=== PATIENT | female | born 1985 | race Caucasian/White ===

== ENCOUNTER 2018-05-23 09:25 | Emergency (ER) | payer BC ==
--- OUTSIDE RECORDS SUMMARY | 2018-05-23 09:39 | XMS REPORT | Continuity of Care Document ---
:1985 External Reference #:[id number] Author Name Ahsan Murillo D.O. Address [address] [place] [address] Care Team Providers Name Role Phone HCP given Primary Care Physician Unavailable Payers Type Date Identification Numbers Payment Provider Subscriber Effective: Policy Number: [id number] Frederick Pizano 2018 Ind/Ppo/Hmo/Pos PayID: [id number] [address] [address] [place] [address] Advance Directives Description No Information Available Problems Date Description Provider Status Onset: 11/27/2004 Verruca vulgaris Braulio Urena M.D. Active Onset: 03/02/2013 Dizziness and giddiness Ahsan Murillo D.O. Active Onset: 06/26/2015 Anxiety state Ahsan Murillo D.O. Active Onset: 06/26/2015 Insomnia Ahsan Murillo D.O. Active Family History Date Family Member(s) Problem(s) Comments Father insomnia Father Hypercholesterolemia Father Pancreatic Cancer Father Florentino Father 1954 Mother Emotional Problems Mother General Health Good Mother Jose Mother 1957 First Brother General Health Good First Brother Antolin First Brother 1986 Second Brother General Health Good Second Brother Doron Second Brother 1993 Third Brother General Health Good Third Brother Eric Third Brother 1996 Social History Type Date Description Comments Sex Unknown Education Highest Level Completed College Marital Status Single Smoke-Free Home is smoke-free Work Status 2012 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, customer service, support Tobacco Use Start: Unknown Denies Cigarette Use No smoking since 20 or 21 ETOH Use Occasionally consumes 2 to 3 drinks over alcohol the w/e (social) Recreational Drug Use Has Used Illegal Drugs In The Past Tobacco Use Start: Unknown Patient has never smoked Smoking Status Reviewed: 10/16/16 Patient has never smoked Sun Exposure moderate amount of sun exposure Sun Exposure Uses sunscreen Seat Belt/Car Seat always uses seat belt Currently Active Patient is currently not sexually active Contraceptive Methods None Age 1st [place] 14 Years Old # Partners in a Lifetime 5 STD's HPV but has not had chlamydia, genital herpes, genital warts, gonorrhea, Hepatitis B, Hepatitis C, HIV/Aids, PID, syphillis or trichomoniasis. Additional Info Sexual preference is men Allergies, Adverse Reactions, Alerts Date Description Reaction Status Severity Comments 12/31/2011 Penicillin Active 08/26/2003 PNC Inactive Medications Medication Date Status Form Strength Qnty SIG Indications Ordering Provider Probiotic 05/09 Active Capsules 1 by mouth Unknown twice daily Magnesium 05/09 Active Tablets 500mg 1 by mouth daily Temazepam 10/11 Active Capsules 7.5mg 30cap 1 every G47.00 s night at Ahsan, bedtime, as D.O. needed for sleep Escitalopram 10/07 Active Tablets 10mg 30tab Take One F41.9 , s Tablet By Ahsan, Mouth Every D.O. Evening Gabapentin 08/02 Active Capsules 300mg 90cap Take 1 To 3 G47.00 s Caps By Ahsan, Mouth as D.O. Needed Clarithromycin 02/21 Hx Tablets 500mg 20tab 1 by mouth 466.0 s twice a day Ahsan, - D.O. 03/03 Magox 400 10/16 Hx Tablets 400(241.3 360ta 1-4 tablets G47.00 mg) mg bs every night Ahsan, - at bedtime D.O. 02/20 as Azithromycin 08/28 Hx Tablets 250mg 6tabs 2 tabs by J01.90 Leanne mouth daily SANDRA Marti - x1 day then 10/15 1 tab by mouth daily x4 days Ventolin HFA 04/17 Hx Aerosol 108(90Bas 16gm inhale 2 R05 [facility] e) puffs by Ahsan, - mcg/Act mouth every D.O. 05/17 4 hours as needed for bronchospasm Multivitamin 04/16 Hx Tablets 1 by mouth Unknown Adult every day - 10/09 Bactrim DS 09/14 Hx Tablets 800-160mg 20tab 1 tab twice 461.0 Silcoff, s daily for 10 Nawaf, - days M.D. 09/24 Clarithromycin 03/03 Hx Tablets 500mg 20tab 1 by mouth 466.0 Sopchak, s twice a day Ahsan, - D.O. 07/03 Flonase 03/03 Hx Suspension 50mcg/Act 1unit inhale 2 461.0 S[place]chak s sprays into Ahsan, - nostril D.O. 07/03 daily in each nostril for nose inflammation Clindagel 12/10 Hx Gel 1% 60g thin layer 705.83 of gel bid Nawaf, - to affected M.D. 02/16 Alprazolam 10/07 Hx Tablets 1mg 60tab 1/2 to 1 780.52 Silcoff, s tabs up to Nawaf, - 3/day M.D. 01/12 Lunesta 10/07 Hx Tablets 1mg 60tab 1 (or 2) 780.52 Silcoff s tabs at Nawaf, - bedtime M.D. 11/10 Temazepam 07/13 Hx Capsules 7.5mg 30cap 1 qhs, prn 780.52 Silcoff, s for sleep Nawaf, - M.D. 10/07 Clarithromycin 09/22 Hx Tablets 500mg 20tab 1 po bid for 461.1 Silcoff, s 10 days; Nawaf, - start if M.D. 10/06 symptoms better by the weekend Zolpidem 07/24 Hx Tablets 5mg 30tab 1-2 tabs 780.52 Silcoff, Tar s qhs,prn Nawaf, - M.D. 07/30 Bactrim DS 07/24 Hx Tablets 160mg;800 14tab 1 po bid 461.0 Silcoff, mg s take until Nawaf, - finished M.D. 09/15 Sulfamethoxazol 04/01 Hx Tablets 800-160mg 20tab 1 po bid 461.0 Braulio greene s A. DS - Gayla, 04/11 M.D. Clindamycin HCL 09/20 Hx Capsules 300mg 20cap 1 tab po 461.0 Silco s b.i.d x 10d Angelito Mccracken M.D. 09/30 Ambien CR 08/01 Hx Tablets ER 12.5mg 30tab one tablet 780.52 [place], s po qhs prn Angelito Mccracken M.D. 07/24 Trazodone HCL 07/24 Hx Tablets 50mg 30tab 1 po qhs 780.52 Silcoff, s Angelito Mccracken M.D. 08/01 Alprazolam 07/03 Hx Tablets 0.5mg 30tab 07/15-1 po tid 300.02 Silco s prn for Angelito Mccracken anxiety M.DLibertad 09/30 Buspirone HCL 07/03 Hx Tablets 5mg 65tab 1 po qd x 7 300.02 [place]copreet, s days, then Nawaf, - bid x 7 M.D. 07/24 days, tid Bactrim DS 03/13 Hx Tablets 160mg;800 20tab 1 po bid 595.0 mg s take until A. - finished Gayla, 03/13 M.D. Bactrim DS 03/13 Hx Tablets 160mg;800 1 po bid 595.0 mg take until A. - finished Gayla, 03/23 M.D. Doxycycline 08/28 Hx Injection 100mg 20uni take 1 , ts tablet two Melany, - times a day N.P. 11/27 after meals for 10 days [id number] 05/26 Hx Tablets 3tabs start on Breiman, n first friday Melany, - of menses N.P. 08/28 Immunizations CPT Code Status Date Vaccine Lot # U-Flu Given 05/02/2017 Influenza,Unspecified U-Flu Given 04/10/2016 Influenza,Unspecified [id number] Given 10/19/2015 Adacel or Boostrix, TDaP [id number] Given 04/28/2015 Influenza Virus Vaccine, Quadrivalent, Split, Preservative Free [id number] Given 05/20/2014 Flu, Split Virus 3Yrs [id number] Given 05/26/2003 Flu, Split Virus 3Yrs Vital Signs Date Vital Result Comment 05/13/2018 3:33pm BP Systolic 112 mmHg BP Diastolic 70 mmHg Weight 131.00 lb 10/17/2017 9:30am BP Systolic 120 mmHg BP Diastolic 70 mmHg Height 66.75 inches 5'6.75" Weight 132.00 lb BMI (Body Mass Index) 20.8 kg/m2 10/10/2017 2:41pm BP Systolic 116 mmHg BP Diastolic 54 mmHg Weight 131.00 lb 02/21/2017 11:55am BP Systolic 104 mmHg BP Diastolic 68 mmHg Weight 141.00 lb 10/16/2016 2:00pm BP Systolic 110 mmHg BP Diastolic 70 mmHg Height 66.5 inches 5'6.50" Weight 145.00 lb with shoes BMI (Body Mass Index) 23.1 kg/m2 08/28/2016 1:26pm BP Systolic 110 mmHg BP Diastolic 60 mmHg Body Temperature 99.0 F Weight 151.00 lb w/boots 06/27/2016 11:13am BP Systolic 125 mmHg BP Diastolic 82 mmHg Weight 151.00 lb with boots 04/17/2016 4:44pm BP Systolic 118 mmHg BP Diastolic 60 mmHg Body Temperature 99.0 F Height 67 inches 5'7" Weight 149.00 lb BMI (Body Mass Index) 23.3 kg/m2 10/19/2015 10:57am BP Systolic 118 mmHg BP Diastolic 72 mmHg Height 66.5 inches 5'6.50" Weight 147.00 lb BMI (Body Mass Index) 23.4 kg/m2 06/26/2015 1:29pm BP Systolic 110 mmHg BP Diastolic 60 mmHg Height 67 inches 5'7" Weight 149.00 lb w/shoes BMI (Body Mass Index) 23.3 kg/m2 02/09/2015 11:30am BP Systolic 128 mmHg BP Diastolic 75 mmHg Weight 141.00 lb with sandals 09/29/2014 11:06am BP Systolic 100 mmHg BP Diastolic 60 mmHg Body Temperature 98.0 F Weight 140.00 lb w/boots 09/14/2014 1:45pm BP Systolic 120 mmHg BP Diastolic 62 mmHg Body Temperature 98.2 F Weight 141.00 lb shoes on 08/26/2014 2:07pm BP Systolic 110 mmHg BP Diastolic 70 mmHg Height 67.25 inches 5'7.25" Weight 137.00 lb BMI (Body Mass Index) 21.3 kg/m2 Last Menstrual Period [id number] 07/04/2014 1:53pm BP Systolic 116 mmHg BP Diastolic 66 mmHg Body Temperature 98.4 F Height 67.5 inches 5'7.50" shoes on Weight 137.50 lb shoes on BMI (Body Mass Index) 21.2 kg/m2 03/03/2014 11:10am BP Systolic 120 mmHg BP Diastolic 82 mmHg Body Temperature 98.2 F Weight 135.00 lb 02/10/2014 8:47am BP Systolic 119 mmHg BP Diastolic 67 mmHg Heart Rate 90 /min Weight 135.00 lb boots 12/10/2013 11:55am BP Systolic 120 mmHg BP Diastolic 74 mmHg Heart Rate 85 /min Body Temperature 98.5 F Weight 130.00 lb 11/10/2013 8:47am BP Systolic 127 mmHg BP Diastolic 71 mmHg Heart Rate 88 /min Weight 133.00 lb 10/07/2013 9:17am BP Systolic 131 mmHg BP Diastolic 69 mmHg Heart Rate 93 /min Weight 131.00 lb 09/20/2013 3:40pm BP Systolic 152 mmHg BP Diastolic 80 mmHg Weight 134.00 lb 09/17/2013 11:26am BP Systolic 130 mmHg BP Diastolic 79 mmHg Heart Rate 103 /min Body Temperature 98.3 F Height 66.50 inches 5'6.50" Weight 133.00 lb BMI (Body Mass Index) 21.1 kg/m2 08/02/2013 9:16am BP Systolic 128 mmHg BP Diastolic 72 mmHg Heart Rate 113 /min 100 Weight 135.00 lb shoes on 07/13/2013 11:07am BP Systolic 108 mmHg BP Diastolic 72 mmHg BP Systolic Standing Resting Right Arm 127 mmHg pulse 101 BP Diastolic Standing Resting Right Arm 83 mmHg pulse 101 Heart Rate 103 /min Weight 132.50 lb Shoes on BP Systolic Lying Down Resting Right Arm 127 mmHg pulse 73 BP Diastolic Lying Down Resting Right Arm 90 mmHg pulse 73 BP Systolic Sitting Resting Right Arm 115 mmHg pulse 98 BP Diastolic Sitting Resting Right Arm 81 mmHg pulse 98 07/09/2013 4:28pm BP Systolic 120 mmHg BP Diastolic 70 mmHg Body Temperature 99.1 F Weight 131.00 lb 03/02/2013 1:23pm BP Systolic 122 mmHg BP Diastolic 80 mmHg Body Temperature 99.0 F Height 66 inches 5'6" Weight 130.00 lb BMI (Body Mass Index) 21.0 kg/m2 09/22/2012 10:15am BP Systolic 120 mmHg BP Diastolic 70 mmHg Body Temperature 98.6 F Weight 134.00 lb 09/02/2012 2:26pm BP Systolic 120 mmHg BP Diastolic 64 mmHg Heart Rate 77 /min Height 66 inches 5'6" Weight 130.00 lb BMI (Body Mass Index) 21.0 kg/m2 07/24/2012 9:53am BP Systolic 118 mmHg BP Diastolic 67 mmHg Heart Rate 93 /min Body Temperature 98.5 F Height 66.50 inches 5'6.50" Weight 129.00 lb BMI (Body Mass Index) 20.5 kg/m2 Last Menstrual Period 0 04/01/2012 1:36pm BP Systolic 110 mmHg BP Diastolic 64 mmHg Body Temperature 98.2 F Weight 129.00 lb Last Menstrual Period 0 03/12/2012 9:55am BP Systolic 104 mmHg BP Diastolic 60 mmHg Heart Rate 68 /min Weight 128.00 lb 12/31/2011 4:55pm BP Systolic 120 mmHg BP Diastolic 64 mmHg Respiratory Rate 12 /min not laboured Body Temperature 97.9 F Weight 127.00 lb 10/02/2011 2:35pm BP Systolic 115 mmHg BP Diastolic 50 mmHg Heart Rate 77 /min Body Temperature 98.5 F Height 66.5 inches 5'6.50" Weight 120.00 lb BMI (Body Mass Index) 19.1 kg/m2 09/21/2011 9:51am BP Systolic 106 mmHg BP Diastolic 58 mmHg Heart Rate 92 /min Body Temperature 98.3 F 09/09/2011 11:38am BP Systolic 128 mmHg BP Diastolic 69 mmHg Heart Rate 103 /min Body Temperature 98.4 F Weight 118.00 lb 07/24/2011 3:18pm BP Systolic 118 mmHg BP Diastolic 72 mmHg Heart Rate 95 /min Weight 118.00 lb Last Menstrual Period 0 07/03/2011 11:43am BP Systolic 132 mmHg BP Diastolic 62 mmHg Heart Rate 85 /min Weight 116.00 lb Last Menstrual Period 0 04/04/2011 1:49pm BP Systolic 122 mmHg BP Diastolic 80 mmHg Heart Rate 78 /min Height 66.5 inches 5'6.50" Weight 120.00 lb BMI (Body Mass Index) 19.1 kg/m2 Last Menstrual Period [id number] 06/20/2010 2:24pm BP Systolic 136 mmHg BP Diastolic 65 mmHg Heart Rate 78 /min Height 67.5 inches 5'7.50" Weight 130.00 lb BMI (Body Mass Index) 20.1 kg/m2 03/27/2006 10:57am BP Systolic 122 mmHg BP Diastolic 60 mmHg Body Temperature 98.2 F Height 66.50 inches 5'6.50" Weight 133.00 lb BMI (Body Mass Index) 21.1 kg/m2 Last Menstrual Period [id number] 10/23/2005 2:32pm BP Systolic 120 mmHg BP Diastolic 72 mmHg Body Temperature 97.7 F Weight 130.00 lb 03/13/2005 4:14pm BP Systolic 128 mmHg BP Diastolic 66 mmHg Heart Rate 80 /min Body Temperature 98.3 F Weight 129.00 lb 11/27/2004 2:06pm BP Systolic 118 mmHg BP Diastolic 68 mmHg Heart Rate 80 /min rrr Respiratory Rate 16 /min easy Body Temperature 98.6 F Weight 130.00 lb Last Menstrual Period [id number] normal 09/19/2004 11:40am BP Systolic 122 mmHg BP Diastolic 72 mmHg Height 67 inches 5'7" Weight 134.00 lb BMI (Body Mass Index) 21.0 kg/m2 08/28/2004 9:43am BP Systolic 126 mmHg BP Diastolic 70 mmHg Height 67 inches 5'7" Weight 132.00 lb BMI (Body Mass Index) 20.7 kg/m2 Last Menstrual Period [id number] 06/20/2004 1:40pm BP Systolic 112 mmHg BP Diastolic 64 mmHg Body Temperature 98.6 F PO Height 67 inches 5'7" Weight 131.00 lb BMI (Body Mass Index) 20.5 kg/m2 09/20/2003 4:50pm Weight 139.00 lb Last Menstrual Period [id number] 09/07/2003 2:55pm Weight 135.00 lb WT Of 08/23/03 09/07/2003 2:53pm Body Temperature 98.2 F 08/23/2003 8:57am BP Systolic 118 mmHg BP Diastolic 70 mmHg Weight 135.00 lb Last Menstrual Period 0 05/26/2003 3:38pm Weight 133.00 lb Results Test Date Facility Test Result H/L Range Note CBC Auto Diff 05/16/2018 [facility] White Blood 5.1 10^3/uL N 3.5- 10.8 [phone] Count Red Blood Count 4.75 10^6/uL N 4.00-5.40 Hemoglobin 15.0 g/dL N 12.0-16.0 Hematocrit 44 % N 35-47 Mean Corpuscular Volume 92 fL N 80-97 Mean Corpuscular Hemoglobin 32 pg High 27-31 Mean Corpuscular HGB Conc 34 g/dL N 31-36 Red Cell Distribution Width 12 % N 10.5-15 Platelet Count 237 10^3/uL N 150-450 Mean Platelet Volume 8.2 fL N 7.4-10.4 Abs Neutrophils 2.5 10^3/uL N 1.5-7.7 Abs Lymphocytes 2.1 10^3/uL N 1.0-4.8 Abs Monocytes 0.5 10^3/uL N 0-0.8 Abs Eosinophils 0 10^3/uL N 0-0.6 Abs Basophils 0 10^3/uL N 0-0.2 Abs Nucleated RBC 0 10^3/uL Granulocyte % 48.2 % N 38-83 Lymphocyte % 41.3 % N 25-47 Monocyte % 9.2 % High 0-7 Eosinophil % 0.9 % N 0-6 Basophil % 0.4 % N 0-2 Nucleated Red Blood Cells % 0 Comp Metabolic Panel 05/16/2018 [facility] Sodium 138 mmol/L N 135- 145 [phone] Potassium 4.8 mmol/L N 3.5-5.0 Chloride 106 mmol/L N 101-111 Co2 Carbon Dioxide 25 mmol/L N 22-32 Anion Gap 7 mmol/L N 2-11 Glucose 85 mg/dL N 70-100 Blood Urea Nitrogen 14 mg/dL N 6-24 Creatinine 0.99 mg/dL High 0.51-0.95 BUN/Creatinine Ratio 14.1 N 8-20 Calcium 9.6 mg/dL N 8.6-10.3 Total Protein 7.3 g/dL N 6.4-8.9 Albumin 4.8 g/dL N 3.2-5.2 Globulin 2.5 g/dL N 2-4 Albumin/Globulin Ratio 1.9 N 1-3 Total Bilirubin 0.80 mg/dL N 0.2-1.0 Alkaline Phosphatase 47 U/L N 34-104 Alt 9 U/L N 7-52 Ast 13 U/L N 13-39 Egfr Non- 64.2 >60 Egfr 77.7 >60 1 Laboratory test 05/16/2018 [facility] TSH (Thyroid 0.90 mcIU/mL N 0.34-5.60 finding [phone] Stim Horm) Magnesium 2.1 mg/dL N 1.9-2.7 Vitamin D Total 25(Oh) 31.9 ng/mL N 20-50 Vitamin B12 368 pg/mL N 180-914 2 Amylase 78 U/L N 29-103 Lipase 27 U/L N 11.0-82.0 Laboratory test 05/16/2018 [facility] Erythrocyte Sed Rate 7 mm/Hr N 0-14 finding [phone] Reactive Protein < 1.00 mg/L N <8.01 Lipid Profile (Trig/Chol/HDL) 02/08/2016 [facility] Triglycerides 108 mg/dL N 3 [phone] Cholesterol 153 mg/dL N 4 HDL Cholesterol 44.4 mg/dL N 5 LDL Cholesterol 87 mg/dL N 6 CBC Auto Diff 02/08/2016 [facility] White Blood Count 6.5 10^3/uL N 3.5-10.8 [phone] Red Blood Count 4.56 10^6/uL N 4.0-5.4 Hemoglobin 14.1 g/dL N 12.0-16.0 Hematocrit 42 % N 35-47 Mean Corpuscular Volume 91 fL N 80-97 Mean Corpuscular Hemoglobin 31 pg N 27-31 Mean Corpuscular HGB Conc 34 g/dL N 31-36 Red Cell Distribution Width 12 % N 10.5-15 Platelet Count 252 10^3/uL N 150-450 Mean Platelet Volume 8 um3 N 7.4-10.4 Abs Neutrophils 3.6 10^3/uL N 1.5-7.7 Abs Lymphocytes 2.3 10^3/uL N 1.0-4.8 Abs Monocytes 0.5 10^3/uL N 0-0.8 Abs Eosinophils 0.1 10^3/uL N 0-0.6 Abs Basophils 0 10^3/uL N 0-0.2 Abs Nucleated RBC 0.01 10^3/uL N Granulocyte % 55.1 % N 38-83 Lymphocyte % 34.7 % N 25-47 Monocyte % 8.3 % N 1-9 Eosinophil % 1.6 % N 0-6 Basophil % 0.3 % N 0-2 Nucleated Red Blood Cells % 0.1 N Comp Metabolic Panel 02/08/2016 [facility] Sodium 139 mmol/L N 133- 145 [phone] Potassium 4.1 mmol/L N 3.5-5.0 Chloride 104 mmol/L N 101-111 Co2 Carbon Dioxide 28 mmol/L N 22-32 Anion Gap 7 mmol/L N 2-11 Glucose 82 mg/dL N 70-100 Blood Urea Nitrogen 12 mg/dL N 6-24 Creatinine 1.01 mg/dL High 0.51-0.95 BUN/Creatinine Ratio 11.9 N 8-20 Calcium 9.4 mg/dL N 8.6-10.3 Total Protein 7.3 g/dL N 6.4-8.9 Albumin 4.5 g/dL N 3.2-5.2 Globulin 2.8 g/dL N 2-4 Albumin/Globulin Ratio 1.6 N 1-3 Total Bilirubin 0.50 mg/dL N 0.2-1.0 Alkaline Phosphatase 50 U/L N 34-104 Alt 9 U/L N 7-52 Ast 16 U/L N 13-39 Egfr Non- 63.9 N >60 Egfr 82.2 N >60 7 Laboratory test 02/08/2016 [facility] TSH (Thyroid 1.81 mcIU/mL N 0.34-5.60 8 finding [phone] Stim Horm) Magnesium 2.0 mg/dL N 1.9-2.7 9 Vitamin D Total 25(Oh) 30.6 ng/mL N 30-50 10 Vitamin B12 320 pg/mL N 180-914 11 Laboratory test finding 09/29/2014 In House Culture Throat Rapid negative Screen Culture Throat negative Laboratory test finding 07/04/2014 In House Culture Throat Rapid negative Screen Culture Throat negative Order 07/04/2014 [facility] rapid strep neg screen, inhouse Laboratory test 10/12/2013 [facility] Stool Culture (SEE NOTE) 12 finding [phone] O P: Giardia/Cryptospor Screen (SEE NOTE) 13 Laboratory test 09/17/2013 [facility] TSH (Thyroid 0.82 IU/mL 0.34- 5.60 finding [phone] Stimulating Horm) Free T3 2.90 pg/mL 2.5-3.9 Total T3 1.19 ng/mL 0.87-1.78 Free T4 1.02 ng/mL 0.61-1.12 T4 8.26 g/dL 6.09-12.23 Laboratory test 09/17/2013 [facility] Thyroglobulin <20 IU/mL <116 14 finding [phone] Antibody Thyroid Peroxidase Antibodies 0.23 IU/mL <9 Laboratory test finding 07/13/2013 In House Glucose Quantitative 89 Laboratory test finding 07/09/2013 In House Glucose Quantitative 101 Hemoglobin 14.5 Comp Metabolic Panel 03/03/2013 [facility] Sodium 135 mmol/L 133- 145 [phone] Potassium 4.0 mmol/L 3.5-5.0 Chloride 103 mmol/L 101-111 Co2 Carbon Dioxide 26.0 mmol/L 22-32 Anion Gap 6.0 mmol/L 2-11 Glucose 90 mg/dL 70-100 Blood Urea Nitrogen 13 mg/dL 6-24 Creatinine 1.00 mg/dL 0.50-1.40 BUN/Creatinine Ratio 13.0 8-20 Calcium 9.4 mg/dL 8.1-9.9 Total Protein 7.0 g/dL 6.2-8.1 Albumin 4.6 g/dL 3.6-5.4 Globulin 2.4 g/dL 2-4 Albumin/Globulin Ratio 1.9 1-3 Total Bilirubin 1.1 mg/dL 0.4-1.5 Alkaline Phosphatase 46 U/L 30-110 Alt 13 U/L Low 14-54 Ast 17 U/L 12-42 Egfr Non- 65.6 >60 Egfr 84.3 >60 15 CBC Auto Diff 03/03/2013 [facility] White Blood Count 8.1 10^3/uL 4.8-10.8 [phone] Red Blood Count 4.50 10^6/uL 4.0-5.4 Hemoglobin 14.4 g/dL 12.0-16.0 Hematocrit 42 % 35-47 Mean Corpuscular Volume 94 fL 80-97 Mean Corpuscular Hemoglobin 32 pg High 27-31 Mean Corpuscular HGB Conc 34 g/dL 31-36 Red Cell Distribution Width 12 % 10.5-15 Platelet Count 239 10^3/uL 150-450 Mean Platelet Volume 8 um3 7.4-10.4 Abs Neutrophils 5.2 10^3/uL 1.5-7.7 Abs Lymphocytes 2.1 10^3/uL 1.0-4.8 Abs Monocytes 0.6 10^3/uL 0-0.8 Abs Eosinophils 0.1 10^3/uL 0-0.6 Abs Basophils 0 10^3/uL 0-0.2 Abs Nucleated RBC 0 10^3/uL Granulocyte % 64.8 % 38-83 Lymphocyte % 25.5 % 25-47 Monocyte % 7.9 % 1-9 Eosinophil % 1.6 % 0-6 Basophil % 0.2 % 0-2 Nucleated Red Blood Cells % 0 Laboratory test finding 03/03/2013 [facility] Magnesium 2.3 mg/dL 1.7-2.6 16 [phone] Phosphorus 3.2 mg/dL 2.4-4.7 17 Folate > 25.6 ng/mL High 2-16 18 Vitamin B12 431 pg/mL 180-914 19 TSH (Thyroid Stimulating Horm) 1.91 miu/mL 0.34-5.60 20 Lipid Profile 03/03/2013 [facility] Triglycerides 98 mg/dL 40-200 (Trig/Chol/HDL) [phone] Cholesterol 161 mg/dL Less than 200 HDL Cholesterol 53 mg/dL 40-60 21 Cholesterol/HDL Ratio 3.0 Average 1-4.44 LDL Cholesterol 88.4 Less Than 100 22 Laboratory test 03/02/2013 In House Hemoglobin A1c 5.0 finding Laboratory test 09/02/2012 [facility] Cytology RUN DATE: 23 finding [phone] 09/04/ <SEE NOTE> Laboratory test 09/02/2012 [facility] Genital Culture (SEE NOTE) 24 finding [phone] Laboratory test 12/31/2011 In House Culture Throat neg finding Laboratory test 10/04/2011 [facility] TSH 1.22 MIU/ML 0.34-5.6 25 finding [phone] Lipid Profile 10/04/2011 [facility] Triglyceride 82 mg/dL 40-200 (Trig/Chol/HDL) [phone] Cholesterol 140 mg/dL Less Than 200 26 High Density Lipoprotein 52 mg/dL 40-60 27 Cholesterol/HDL Ratio 2.69 AVERAGE 1-4.44 Low Density Lipoprotein 72 mg/dL Less Than 100 28 Comp Metabolic Panel 10/04/2011 [facility] Sodium 138 mmol/L 135- 145 [phone] Potassium 4.0 mmol/L 3.5-5.0 Chloride 105 mmol/L 101-111 Co2 (Carbon Dioxide) 27.0 mmol/L 22-32 Anion Gap 6.0 mmol/L 2-11 29 Glucose 91 mg/dL 70-100 BUN 10 mg/dL 6-24 Creatinine 1.0 mg/dL 0.50-1.40 One Over Creatinine 1.00 BUN/Creatinine Ratio 10.0 8-20 Calcium 9.3 mg/dL 8.1-9.9 Total Protein 7.4 GM/DL 6.2-8.1 Albumin 4.4 GM/DL 3.6-5.4 Globulin 3.0 GM/DL 2-4 Albumin/Globulin Ratio 1.5 1-3 Bilirubin Total 0.9 mg/dL 0.4-1.5 30 Alkaline Phosphatase 54 U/L 30-110 Alt (SGPT) 16 U/L 14-54 Ast (Sgot) 22 U/L 12-42 eGFR Non- 66.5 > 60 eGFR 85.5 > 60 31 CBC Auto Diff 10/04/2011 [facility] White Blood Count 7.3 CUMM 4.8- 10.8 [phone] Red Cell Count 4.38 CUMM 4.2-5.4 Hemoglobin 14.2 g/dL 12.0-16.0 Hematocrit 41 % 35-47 Mean Corpuscular Volume 93 um3 79-97 Mean Corpuscular Hemoglob 32 pg High 27-31 Mean Corpuscular HGB Cone 35 g/dL 32-36 Redcell Distribution WDTH 12 % 10.5-15 Platelet Count 266 CUMM 150-450 Mean Platelet Volume 7.8 um3 7.4-10.4 Gran % 61.4 % 38-83 Lymph % 30.4 % 25-47 Mononuclear % 7.2 % 1-9 Eosinophil % 0.8 % 0-6 Basophil % 0.2 % 0-2 Abs Lymphs 2.2 1.0-4.8 Abs Mononuclear 0.5 0-0.8 Absolute Neutrophil Count 4.5 1.5-7.7 Abs Eosinophils 0.1 0-0.6 Abs Basophils 0 0-0.2 Ua Inhouse 10/02/2011 In House Ua Glucose - Ua Bilirubin - Ua Ketones - Ua Specific [place] 1.020 Ua Blood - Ua PH 5.0 Ua Protein - Ua Urobilinogen - Ua Nitrite - Ua Leukocytes - Laboratory test finding 09/09/2011 In House Culture Throat Rapid Screen neg Culture Throat neg Laboratory test 04/04/2011 [facility] Cytology <SEE 32 finding [phone] NOTE> CBC Auto Diff 04/04/2011 [facility] White Blood 6.9 CUMM 4.8-2 [phone] Count 0.8 Red Cell Count 4.32 CUMM 4.2-5.4 Hemoglobin 13.9 g/dL 12.0-16.0 Hematocrit 41 % 35-47 Mean Corpuscular Volume 94 um3 79-97 Mean Corpuscular Hemoglob 32 pg High 27-31 Mean Corpuscular HGB Cone 34 g/dL 32-36 Redcell Distribution WDTH 12 % 10.5-15 Platelet Count 233 CUMM 150-450 Mean Platelet Volume 8.5 um3 7.4-10.4 Gran % 58.2 % 38-83 Lymph % 33.4 % 25-47 Mononuclear % 7.1 % 1-9 Eosinophil % 0.7 % 0-6 Basophil % 0.6 % 0-2 Abs Lymphs 2.3 1.0-4.8 Abs Mononuclear 0.5 0-0.8 Absolute Neutrophil Count 4.0 1.5-7.7 Abs Eosinophils 0 0-0.6 Abs Basophils 0 0-0.2 Laboratory test 04/04/2011 [facility] TSH 0.66 MIU/ML 0.34-5.60 finding [phone] Xray 06/20/2010 [facility] X-Ray, Foot, unremarkable Left, Complete GC/Chlamydia 03/27/2006 [facility] CHL By NEGATIVE Negative 33 Dna Probe [phone] Aptima GC By Aptima NEGATIVE Negative 34 Laboratory test 03/27/2006 [facility] Cytology <SEE 35 finding [phone] NOTE> Laboratory test 10/23/2005 In House Culture Throat NEG P/ finding Ua Inhouse 03/21/2005 In House Ua Glucose neg Ua Bilirubin neg Ua Ketones neg Ua Specific [place] 1.015 Ua Blood neg Ua PH 5.0 Ua Protein neg Ua Urobilinogen neg Ua Nitrite ne Ua Leukocytes neg Laboratory test finding 03/21/2005 In House Urine Microscopic Inhouse neg Culture Urine Inhouse 03/21/2005 In House Presumptive NEG Colonies NEG [facility] Inhouse 03/13/2005 In House Ua Glucose NEG 36 Ua Bilirubin NEG Ua Ketones NEG Ua Specific [place] 1.005 Ua Blood SMALL Ua PH 8.5 Ua Protein TRACE Ua Urobilinogen NEG Ua Nitrite NEG Ua Leukocytes MODERATE Laboratory test 03/13/2005 In House Urine Microscopic SEE RESULT NOTES finding Inhouse Culture Urine Inhouse 03/13/2005 In House Presumptive POS E Coli POS Colonies 10 TO THE 5TH Laboratory test 11/28/2004 In House Urine Microscopic 1-2 WBC, epi's finding Inhouse [facility] Inhouse 11/28/2004 In House Ua Glucose neg Ua Bilirubin neg Ua Ketones neg Ua Specific [place] 1.030 Ua Blood neg Ua PH 5.0 Ua Protein 1+ Ua Urobilinogen neg Ua Nitrite neg Ua Leukocytes neg CBC With Electronic 11/27/2004 [facility] White Blood 7.8 CUMM 4.8- 10.8 Diff [phone] Count Abs Basophils 0 0-0.2 Abs Eosinophils 0.1 0-0.6 Abs Grans 4.0 1.5-7.7 Abs Lymphs 3.1 1.0-4.8 Abs Mononuclear 0.6 0-0.8 Basophil % 0.2 % 0-2 Hematocrit 40 % 35-47 Hemoglobin 13.7 g/dL 12.0-16.0 Eosinophil % 1.6 % 0-6 Gran % 51.0 % 38-83 Lymph % 40.1 % 20-45 Mean Corpuscular HGB Cone 34 g/dL 32-36 Mean Corpuscular Hemoglob 32 pg High 27-31 Mean Corpuscular Volume 93 um3 79-97 Mean Platelet Volume 8.3 um3 7.4-10.4 Mononuclear % 7.1 % 1-9 Platelet Count 284 CUMM 150-450 Red Cell Count 4.31 CUMM 4.2-5.4 Redcell Distribution WDTH 12 % 10.5-15 Laboratory test 11/27/2004 [facility] Erythrocyte Sed 4 MM/HR 0-15 finding [phone] Rate Comp Metabolic 11/27/2004 [facility] Anion Gap 6.0 mmol/L 2-11 37 Panel [phone] Albumin/Globulin Ratio 1.7 1-3 Albumin 4.5 GM/DL 3.6-5.4 Alkaline Phosphatase 59 U/L 40-122 Alt (SGPT) 16 U/L 14-54 Ast (Sgot) 21 U/L 12-42 BUN 10 mg/dL 6-24 Calcium 9.9 mg/dL 8.7-10.2 Chloride 105 mmol/L 101-111 Co2 (Carbon Dioxide) 30.0 mmol/L 22-32 Creatinine 1.0 mg/dL 0.5-1.4 Globulin 2.7 GM/DL 2-4 Glucose 85 mg/dL 70-105 Potassium 4.4 mmol/L 3.5-5.0 Sodium 141 mmol/L 135-145 Bilirubin Total 0.8 mg/dL 0.4-1.5 Total Protein 7.2 GM/DL 6.2-8.1 BUN/Creatinine Ratio 10.0 8-20 RPR 11/27/2004 [facility] RPR NON REACTIVE Nonreactive [phone] [facility] Inhouse 08/28/2004 In House Ua Glucose - Ua Bilirubin - Ua Ketones - Ua Specific [place] 1.030 Ua Blood - Ua PH 5.0 Ua Protein TR Ua Urobilinogen - Ua Nitrite - Ua Leukocytes - 1 Because ethnic data is not always readily available, this report includes an eGFR for both -Americans and non- Americans. The National Kidney Disease Education Program (NKDEP) does not endorse the use of the MDRD equation for patients that are not between the ages of 18 and 70, are , have extremes of body size, muscle mass, or nutritional status, or are non- or non-. According to the National Kidney Foundation, irrespective of diagnosis, the stage of the disease is based on the level of kidney function: Stage Description GFR(mL/min/1.73 m(2)) 1 Kidney damage with normal or decreased GFR 90 2 Kidney damage with mild decrease in GFR 60-89 3 Moderate decrease in GFR 30-59 4 Severe decrease in GFR 15-29 5 Kidney failure <15 (or dialysis) 2 Normal Range 180 to 914 Indeterminate Range 145 to 180 Deficient Range <145 3 Desirable <150 Borderline high 150-199 High 200-499 Very High >500 4 Desirable <200 Borderline high 200-239 High >239 5 Low <40 Desirable: 40-60 High: >60 6 Desirable: <100 mg/dL Near Optimal: 100-129 mg/dL Borderline High: 130-159 mg/dL High: 160-189 mg/dL Very High: >189 mg/dL 7 Because ethnic data is not always readily available, this report includes an eGFR for both -Americans and non- Americans. The National Kidney Disease Education Program (NKDEP) does not endorse the use of the MDRD equation for patients that are not between the ages of 18 and 70, are , have extremes of body size, muscle mass, or nutritional status, or are non- or non-. According to the National Kidney Foundation, irrespective of diagnosis, the stage of the disease is based on the level of kidney function: Stage Description GFR(mL/min/1.73 m(2)) 1 Kidney damage with normal or decreased GFR 90 2 Kidney damage with mild decrease in GFR 60-89 3 Moderate decrease in GFR 30-59 4 Severe decrease in GFR 15-29 5 Kidney failure <15 (or dialysis) 8 FASTING 9 FASTING 10 FASTING 11 Normal Range 180 to 914 Indeterminate Range 145 to 180 Deficient Range <145 12 RUN DATE: 10/14/13 [facility] LAB LIVE PAGE 1 RUN TIME: [address] [place] [address] Specimen Inquiry Name: LEIGHA PIZANO : [address]: Katia FLORES Acct: [id number] Unit: [id number] AGE: 28 Location: [facility] Re10/12/13 SEX: F Status: REG REF SPEC: [id number] YAMINI: 10/12/[address] [facility] [address]: Katia FLORES REQ: [id number] RECD: 10/12/13 STATUS: COMP _ SOURCE: STOOL SPDESC: ORDERED: Stool Culture, O P: Gilizandro/Crypt QUERIES: [facility] Number [id number] Procedure Result Verified Site Stool Culture Final 10/14/13- 901 ML Result No enteric pathogens isolated Testing for Salmonella, Shigella, Aeromonas, Plesiomonas, Yersinia and Campylobacter are included in a Stool Culture. Vibrio spp not routinely tested for in a stool culture. If testing is desired, please request specifically when placing test order. Sensitivities not routinely performed on stool isolates, as antibiotics may prolong the carriage rate of bacteria. Please contact the microbiology lab if sensitivities are required. Stool Specimen Description Final 10/12/13- 1045 ML Stool Color Brown Stool Form Nonformed Stool Consistency Soft Liquid Shiga Toxin 1 2 Final 10/13/13- 1604 ML Organism 1 Negative Shiga Toxin 1 2 Immunochromatographic Assay CONTINUED ON NEXT PAGE * ML=Testing performed at Main Lab DEPARTMENT OF PATHOLOGY, [facility] [address] [place], [place] [address] José Chris M.D. Director [facility] Permit #[id number] RUN DATE: 10/14/13 [facility] LAB LIVE PAGE 2 RUN TIME: 901 [facility] [address] [place], [place] [address] Specimen Inquiry Patient: LEIGHA PIZANO [id number] (Continued) Specimen: [id number] Collected: 10/12/13 Received: 10/12/13 (Continued) Procedure Result Verified Site Shiga Toxin 1 2 Final (continued) 10/13/13- 1604 O P: Giardia/Cryptospor Screen Final 10/13/13- 1013 ML Organism 1 Neg Cryptosporidium/Giardia Giardia and cryptosporidium antigen testing performed by enzyme immunoassay. If patient is immunocompromised or has traveled to or is from a developing country, a full ova and parasite exam with microscopic (OPMIC) is recommended. All samples will be held one month in case full ova and parasite testing is requested. Contact the Microbiology Department at [phone]. TEST LIMITATIONS: As with all diagnostic procedures, the results obtained should be used in conjunction with other clinical information available the physician. Negative results can occur in samples containing antigen below lower limits of detection of the assay. The use of colonic washes, aspirates or other diluted sample types has not been established and could affect the performance of the assay. Stool samples contaminated with an oily or particulate base (eg. Barium, mineral oil etc.) could interfere with the test and are not recommended. END OF REPORT * ML=Testing performed at Main Lab DEPARTMENT OF PATHOLOGY, [facility] [address] [place], [place] [address] José Chris M.D. Director [facility] Permit #[id number] RUN DATE: 10/13/13 [facility] LAB LIVE PAGE 1 RUN TIME: [address] [place], [place] [address] Specimen Inquiry Name: LEIGHA PIZANO : [address]: Katia FOLRES Acct: [id number] Unit: [id number] AGE: 28 Location: [facility] Re10/12/13 SEX: F Status: REG REF SPEC: [id number] YAMINI: 10/12/[address]: Katia FLORES REQ: [id number] RECD: 10/12/13 STATUS: RES _ SOURCE: STOOL SPDESC: ORDERED: Stool Culture, O P: Giar/Crypt QUERIES: [employer] Number [id number] Procedure Result Verified Site Stool Culture PENDING Stool Specimen Description Final 10/12/13- 1045 ML Stool Color Brown Stool Form Nonformed Stool Consistency Soft Liquid Shiga Toxin 1 2 PENDING O P: Giardia/Cryptospor Screen Final 10/13/13- 1013 ML Organism 1 Neg Cryptosporidium/Giardia Giardia and cryptosporidium antigen testing performed by enzyme immunoassay. If patient is immunocompromised or has traveled to or is from a developing country, a full ova and parasite exam with microscopic (OPMIC) is recommended. All samples will be held one month in case full ova and parasite testing is requested. Contact the Microbiology Department at [phone]. TEST LIMITATIONS: As with all diagnostic procedures, the results obtained should be used in conjunction with other clinical information available the physician. Negative results can occur in samples containing antigen below lower limits of detection of the assay. The use of colonic washes, aspirates or other diluted sample types has not been established and could affect the performance of the assay. CONTINUED ON NEXT PAGE * ML=Testing performed at Main Lab DEPARTMENT OF PATHOLOGY, [address] [place] [address] José Chris M.D. Director [facility] Permit #[id number] RUN DATE: 10/13/13 [facility] LAB LIVE PAGE 2 RUN TIME: [address] [place] [address] Specimen Inquiry Patient: LEIGHA PIZANO [id number] (Continued) Specimen: [id number] Collected: 10/12/13 Received: 10/12/13 (Continued) Procedure Result Verified Site O P: Giardia/Cryptospor Screen Final (continued) 10/13/13- 1013 Stool samples contaminated with an oily or particulate base (eg. Barium, mineral oil etc.) could interfere with the test and are not recommended. END OF REPORT * ML=Testing performed at Main Lab DEPARTMENT OF PATHOLOGY, [address] [place] [address] José Chris M.D. Director [place] [employer] Permit #[id number] 14 If thyroglobulin antibody measurement is performed to assess the reliability of the thyroglobulin assay for thyroid cancer patient follow-up, a thyroglobulin antibody result=/>22 IU/mL may result in falsely decreased thyroglobulin values. The thyroglobulin antibody testing method is an electrochemiluminescence assay manufactured by [employer] and performed on the Modular or Chuy system. Values obtained from different assay methods or kits may be different and cannot be used interchangeably. Test Performed by: [address] [address] Cargo Inspector: Yannick Ramirez III, M.D. 15 Because ethnic data is not always readily available, this report includes an eGFR for both -Americans and non- Americans. The National Kidney Disease Education Program (NKDEP) does not endorse the use of the MDRD equation for patients that are not between the ages of 18 and 70, are , have extremes of body size, muscle mass, or nutritional status, or are non- or non-. According to the National Kidney Foundation, irrespective of diagnosis, the stage of the disease is based on the level of kidney function: Stage Description GFR(mL/min/1.73 m(2)) 1 Kidney damage with normal or decreased GFR 90 2 Kidney damage with mild decrease in GFR 60-89 3 Moderate decrease in GFR 30-59 4 Severe decrease in GFR 15-29 5 Kidney failure <15 (or dialysis) 16 FASTING 17 FASTING 18 FASTING 19 FASTING 20 FASTING 21 HDL Interpretation: Undesirable: High Risk: Less than 40 mg/dL Desirable: Low Risk: Greater than 60 mg/dL 22 LDL Interpretation: Low Risk Optimal Level: LDL Less than 100 mg/dL Near or Above Optimal: LDL 100-129 mg/dL Borderline High Risk: LDL 130-159 mg/dL High Risk: LDL 160-189 mg/dL Very High Risk: LDL Greater than 189 mg/dL 23 RUN DATE: 09/04/12 [facility] LAB LIVE PAGE 1 RUN TIME: [address] [place], [place] [address] Specimen Inquiry Name: LEIGHA PIZANO : [address]: Katia Orosco PA Acct: [id number] Unit: [id number] AGE: 27 Location: [facility] Re09/02/12 SEX: F Status: REG REF SPEC: [id number] YAMINI: 09/02/12-[address]: Katia Orosco PA REQ: [id number] RECD: 09/03/12-1544 STATUS: SOUT _ ORDERED: IMAGE ANALYSIS FINAL DIAGNOSIS Negative for Intraepithelial lesion or Malignancy A. Ectocervical/Endocervical Specimen Adequacy: Satisfactory of evaluation Transformation zone component identified Patient Information: HPV: Thin Layer Pap Test w/reflex to high risk HPV DNA testing when ASCUS Actual Specimen Date: 09/02/12 Last Menstrual Date: 08/28/12 Cautery: N IUD: N Lesion, grossly demonstrate: N ?: N Post Menopausal?: N Hysterectomy?: N Signed (signature on file) BEHZAD Spicer (ASCP) 09/04 1139 This Pap test was evaluated with the assistance of the [employer] Test Imaging System. Due to cytologic findings at the plant general manager microscope, comprehensive manual rescreening by a Store Director may be required. The Pap Smear is a screening test designed to aid in the detection of premalignant and malignant conditions of the uterine cervix. It is not a diagnostic procedure and should not be used as the sole means of detecting cervical cancer. Both false- positive and false- negative reports do occur. Depending on your risk status, a Pap smear shoudl be obtained and evaluated every 1-3 years. END OF REPORT * ML=Testing performed at Main Lab DEPARTMENT OF PATHOLOGY, [facility] [address] [place], [place] [address] José Chris M.D. Director [facility] Permit #[id number] RUN DATE: 09/05/12 [facility] LAB LIVE PAGE 1 RUN TIME: 1047 [facility] [address] [place], [place] [address] Specimen Inquiry Name: LEIGHA PIZANO : [address]: Katia Orosco PA Acct: [id number] Unit: [id number] AGE: 27 Location: [facility] Re09/02/12 SEX: F Status: REG REF SPEC: [id number] YAMINI: 09/02/12-[address]: Katia Orosco PA REQ: [id number] RECD: 09/03/12-1315 STATUS: COMP _ SOURCE: VAGINAL SPDESC: ORDERED: Genital Culture QUERIES: [employer] Number [id number] Procedure Result Verified Site Genital Culture Final 09/05/12- 1047 ML Organism 1 NORMAL FABIAN Quantity 3+ END OF REPORT * ML=Testing performed at Main Lab DEPARTMENT OF PATHOLOGY, [address] [place] [address] José Chris M.D. Director [place] [employer] Permit #[id number] 25 PT HAD A COUGH DROP PRIOR TO BLOOD WORK 26 CHOLESTEROL INTERPRETATION: Desirable: Less than 200 MG/DL Borderline-High Risk: 200-239 MG/DL High-Risk: 240 MG/DL and over 27 HDL INTERPRETATION: Undesirable: High Risk: Less than 40 MG/DL Desirable: Low Risk: Greater than 60 MG/DL 28 LDL INTERPRETATION: Low Risk Optimal Level: LDL Less than 100 MG/DL Near or Above Optimal: LDL 100-129 MG/DL Borderline High Risk: LDL 130-159 MG/DL High Risk: LDL 160-189 MG/DL Very High Risk: LDL Greater than 189 MG/DL 29 Anion gap measurement may be of limited value in the presence of any alkalosis, especially in a combined acid base disorder. . 30 A metabolite of Naproxen, O-desmethylnaproxen, has been shown to interfere with the Jendrassik-Irena method for measuring total bilirubin. Samples from patients who have taken Naproxen have shown spurious elevation in total bilirubin levels. 31 Because ethnic data is not always readily available, this report includes an eGFR for both -Americans and non- Americans. The National Kidney Disease Education Program (NKDEP) does not endorse the use of the MDRD equation for patients that are not between the ages of 18 and 70, are , have extremes of body size, muscle mass, or nutritional status, or are non- or non-. According to the National Kidney Foundation, irrespective of diagnosis, the stage of the disease is based on the level of kidney function: Stage Description GFR(mL/min/1.73 m(2)) 1 Kidney damage with normal or decreased GFR 90 2 Kidney damage with mild decrease in GFR 60-89 3 Moderate decrease in GFR 30-59 4 Severe decrease in GFR 15-29 5 Kidney failure <15 (or dialysis) 32 ---- RUN DATE: 04/05/11 [facility] NMI LIVE PAGE 1 RUN TIME: 1646 Specimen Inquiry RUN USER: INTERFACE -- Name: LEIGHA PIZANO Status: REG REF Re04/04/11 Age/Sex: 26/F Unit#: [id number] Location: [facility] : [birth year] -- Specimen: [id number] Spec Date: 04/04/[address]: Katia FLORES Spec Type: CYTOLOGY Received: 04/05/11-1029 Copies to: SOURCE ECTOCERVICAL/ENDOCERVICAL Thin Prep with Reflex HPV Test PATIENT INFORMATION ACTUAL COLLECTION DATE: 04/04/11 ? No POST MENOPAUSAL? No LAST MENSTRUAL PERIOD: 03/18/11 ADEQUACY OF SPECIMEN Satisfactory for evaluation * Transformation zone component identified * DIAGNOSIS NEGATIVE FOR INTRAEPITHELIAL LESION OR MALIGNANCY * Reactive cellular changes associated with * Inflammation (includes typical repair) * This Pap test was evaluated with the assistance of the [employer] Pap Test Imaging System. Due to cytologic findings at the plant general manager microscope, comprehensive manual rescreening by a Store Director was required. The Pap Smear is a screening test designed to aid in the detection of premalign ant and malignant conditions of the uterine cervix. It is not a diagnostic procedure a nd should not be used as the sole means of detecting cervical cancer. Both false- positiv e and false-negative reports do occur. Depending on your risk status, a Pap smear julia uld be obtained and evaluated every one to three years. Initial evaluation performed by Ronda ANNE(ASCP) 04/05/11 Final Interpretation electronically signed by: JESUS YOUNG 04/05/11 1646 -- DEPARTMENT OF PATHOLOGY, [address] [place] [address] [facility] Permit #[id number] José Chris M.D. Director Jesus Young M.D. Level Vial Inspector And Tester Dir stanley -- 33 . A negative result does not preclude the presence of a C.trachomatis or N.gonorrhoeae infection because results are dependent on adequate specimen collection, absence of inhibitors, and sufficient rRNA to be detected. Test results may be affected by improper specimen collection, improper specimen storage, technical error, or specimen mixup. . 34 . A negative result does not preclude the presence of a C.trachomatis or N.gonorrhoeae infection because results are dependent on adequate specimen collection, absence of inhibitors, and sufficient rRNA to be detected. Test results may be affected by improper specimen collection, improper specimen storage, technical error, or specimen mixup. . 35 ---- RUN DATE: 04/03/06 [facility] LIVE PAGE 1 RUN TIME: 923 Specimen Inquiry RUN USER: INTERFACE [id number] LEIGHA PIZANO <REG REF 03/27> ([id number]) Valeria Flynn MD. -- Specimen: [id number] [id number] Spec Date: 03/27/[address]: Valeria Singh MD. Spec Type: CYTOLOGY Received: 03/31/06-1442 Copies to: SOURCE ECTOCERVICAL/ENDOCERVICAL Thin Prep with Reflex HPV Test PATIENT INFORMATION ACTUAL COLLECTION DATE: 03/27/06 ? NO POST MENOPAUSAL? No HYSTERECTOMY? No LAST MENSTRUAL PERIOD: 03/07/06 ADEQUACY OF SPECIMEN Satisfactory for evaluation * Transformation zone component identified * DIAGNOSIS NEGATIVE FOR INTRAEPITHELIAL LESION OR MALIGNANCY * The Pap Smear is a screening test designed to aid in the detection of premalign ant and malignant conditions of the uterine cervix. It is not a diagnostic procedure an d should not be used as the sole means of detecting cervical cancer. Both false-positive and false-negative reports do occur. Depending on your risk status, a Pap smear julia uld be obtained and evaluated every one to three years. Signed Ronda ANNE CT(ASCP) 04/02/06 (p reliminary) Louise RAMACHANDRAN CT(ASCP) 04/02/06 (pre liminary) Electronically signed Ronda ANEN CT(ASCP) 04/03/06 -- -- DEPARTMENT OF PATHOLOGY, [address] [place] [address] [facility] Permit #[id number] Braulio Madrigal II, M.D. Director Lorelei Guillaume irector -- 36 20-30 WBC 6-10 RBC 2-3 EPIS 37 Anion gap measurement may be of limited value in the presence of any alkalosis, especially in a combined acid base disorder. . Procedures Date Code Description Status 06/27/2016 85351 Omt 3 To 4 Body Regions Involved Completed 07/13/2013 67033 Visual Acuity Screening Test Completed 03/02/2013 56034 Electrocardiogram Complete Completed 06/20/2010 90214 X-Ray Foot Three Views Completed Encounters Type Date Location Provider Dx Diagnosis Office Visit 05/13/2018 3:00p Main Office Ahsan Murillo D.O. E83.42 Hypomagnesemia F41.9 Anxiety disorder, unspecified K59.00 Constipation, unspecified Office Visit 10/17/2017 9:15a Main Office Ahsan Murillo, Z00.00 Encntr for Quinten general adult medical exam w/o abnormal findings K59.00 Constipation, unspecified G47.00 Insomnia, unspecified F41.9 Anxiety disorder, unspecified J01.00 Acute maxillary sinusitis, unspecified Z71.89 Other specified counseling Office Visit 10/10/2017 2:30p Main Office Ahsan Murillo, K59.00 Constipation, D.O. unspecified R10.32 Left lower quadrant pain Z80.8 Family history of malignant neoplasm of organs or systems F41.9 Anxiety disorder, unspecified E83.42 Hypomagnesemia Office Visit 02/21/2017 11:30a Main Office Ahsan Murillo, J20.9 Acute bronchitis, D.O. unspecified R05 Cough Office Visit 10/16/2016 1:30p Main Office Ahsan Murillo, F41.9 Anxiety disorder, D.O. unspecified G47.00 Insomnia, unspecified Z00.00 Encntr for general adult medical exam w/o abnormal findings Office Visit 08/28/2016 1:20p Main Office Kaia Perdomo, J01.90 Acute sinusitis, PA unspecified Office Visit 06/27/2016 10:45a Main Office Ahsan Murillo, M54.5 Low back pain D.O. M99.03 Segmental and somatic dysfunction of lumbar region M99.04 Segmental and somatic dysfunction of sacral region M99.05 Segmental and somatic dysfunction of pelvic region M99.02 Segmental and somatic dysfunction of thoracic region Office Visit 04/17/2016 4:30p Main Office Ahsan Murillo, F41.9 Anxiety disorder, D.O. unspecified R05 Cough Office Visit 10/19/2015 10:30a Main Office Ahsan Murillo, F41.9 Anxiety disorder, D.O. unspecified G47.00 Insomnia, unspecified Z00.00 Encntr for general adult medical exam w/o abnormal findings Z23 Encounter for immunization Office Visit 06/26/2015 1:15p Main Office Ahsan Murillo, F41.9 Anxiety disorder, D.O. unspecified G47.00 Insomnia, unspecified Office Visit 02/09/2015 11:15a Main Office Ahsan Murillo, 300.00 Anxiety State D.O. Unspec 307.47 Sleep Stage Or Sleep Arousal Dysfunction Other V79.0 Screening Depression Office Visit 09/29/2014 11:00a Main Office Lidia Nash, 462 Pharyngitis Acute RPA-C 381.89 Eustachian Tube Disorders Other Office Visit 09/14/2014 1:40p Main Office Saad, 461.0 Sinusitis Acute Lidia, RPA-C Maxillary Office Visit 08/26/2014 2:00p Main Office Saad, V70.0 Examination Lidia, RPA-C General Medical Routine AT Health Care Facility V72.31 Routine Supervisor Livestock Yard Examination V76.19 Screening Breast Exam Malignant Neoplasms Other 528.9 Oral Soft Tissue Diseases Other & Unspec 719.49 Pain Joint Multiple Sites 626.9 Menstruation & Other Abnormal Bleeding Disorders Unspec 780.52 Insomnia Unspecified Office Visit 07/04/2014 1:40p Main Office Lidia Nash, 462 Pharyngitis Acute RPA-C 465.8 Upper Respiratory Infections Acute Other Multiple Sites Office Visit 03/03/2014 11:00a Main Office Ahsan Murillo, 461.0 Sinusitis Acute D.O. Maxillary 466.0 Bronchitis Acute Office Visit 02/10/2014 8:40a Main Office Katia Orosco 780.52 Insomnia P.A. Unspecified 300.00 Anxiety State Unspec Office Visit 12/10/2013 11:40a Main Office Katia Orosco 782.1 Rash & Other P.A. Nonspec Skin Eruption 705.83 Hidradenitis 300.00 Anxiety State Unspec 780.52 Insomnia Unspecified 782.2 Swelling Mass Or Lump Localized Superfical Office Visit 11/10/2013 8:40a Main Office Katia Orosco 780.52 Insomnia P.A. Unspecified 300.00 Anxiety State Unspec Office Visit 10/07/2013 9:00a Main Office Katia Orosco 780.52 Insomnia P.A. Unspecified 300.00 Anxiety State Unspec Office Visit 09/20/2013 3:30p Main Office Ahsan Murillo 780.52 Insomnia D.O. Unspecified 780.79 Malaise And Fatigue Other 787.02 Nausea Alone 300.00 Anxiety State Unspec 787.20 Dysphagia, Unspecified Office Visit 09/17/2013 11:20a Main Office Cydney Mari.79 Malaise And P.A. Fatigue Other 780.52 Insomnia Unspecified Office Visit 08/02/2013 9:00a Main Office Katia Lansdowne, 780.79 Malaise And P.A. Fatigue Other 780.4 Dizziness & Giddiness 780.52 Insomnia Unspecified 787.02 Nausea Alone Office Visit 07/13/2013 10:30a Main Office Katia Orosco, 780.79 Malaise And P.A. Fatigue Other 780.4 Dizziness & Giddiness 780.52 Insomnia Unspecified 368.9 Visual Disturbances Unspec 346.00 Migraine Classical W/O Intractable W/O Status Migrainosus Office Visit 07/09/2013 4:20p Main Office Katia Orosco 780.4 Dizziness & P.A. Giddiness V78.1 Screening Deficiency Anemia Other & Unspec V77.1 Screening Diabetes Mellitus 780.52 Insomnia Unspecified 780.79 Malaise And Fatigue Other Office Visit 03/02/2013 1:15p Main Office Ahsan Murillo, 780.4 Dizziness & D.O. Giddiness 251.2 Hypoglycemia Other Unspec Office Visit 09/22/2012 9:45a Main Office Nawaf Freitas, 465.9 URI Upper M.D. Respiratory Infections Acute Unspec Sites 461.1 Sinusitis Acute Frontal Office Visit 09/02/2012 2:00p Main Office Katia Orosco V70.0 Examination General P.A. Medical Routine AT [facility] 723.9 Cervical Region Musculoskeletal Disorders & Symptoms Unspec V72.31 Routine Supervisor [employer] Examination V76.2 Screening Malignant Neoplasm Cervix V76.10 Screening For Malignant Neoplasm Breast 780.52 Insomnia Unspecified Office Visit 07/24/2012 9:40a Main Office Katia Orosco 461.0 Sinusitis Acute P.A. Maxillary 780.52 Insomnia Unspecified Office Visit 04/01/2012 1:30p Main Office Braulio Abreu 461.0 Sinusitis Acute Lorelei Urena Maxillary Office Visit 03/12/2012 9:40a Main Office Katia Orosco 719.47 Pain Joint Ankle & P.A. Foot 300.02 Anxiety Disorder Generalized Office Visit 12/31/2011 4:45p Main Office Nawaf Freitas, 465.9 URI Upper M.D. Respiratory Infections Acute Unspec Sites 784.1 Throat Pain V65.49 Counseling Other Spec Office Visit 10/02/2011 2:20p Main Office Dawood Mari 784.0 Headache 780.52 Insomnia Unspecified 786.2 Cough 789.03 Pain Abdominal Right Lower Quadrant 789.04 Pain Abdominal Left Lower Quadrant Office Visit 09/21/2011 9:30a Main Office Katia Orosco, 461.0 Sinusitis Acute P.A. Maxillary Office Visit 09/09/2011 11:20a Main Office Katia Lansdowne, 462 Pharyngitis Acute P.A. 465.9 URI Upper Respiratory Infections Acute Unspec Sites Office Visit 07/24/2011 3:00p Main Office Katia Orosco, 300.02 Anxiety Disorder P.A. Generalized 780.52 Insomnia Unspecified Office Visit 07/03/2011 11:00a Main Office Katia Orosco, 300.02 Anxiety Disorder P.A. Generalized 783.21 Loss Of Weight 780.52 Insomnia Unspecified Office Visit 04/04/2011 1:40p Main Office Olivier MariALibertad 783.21 Loss Of Weight 300.02 Anxiety Disorder Generalized V70.0 Examination General Medical Routine AT [facility] Care Facility V76.19 Screening Breast Exam Malignant Neoplasms Other V76.2 Screening Malignant Neoplasm Cervix Office Visit 06/20/2010 2:20p Main Office Katia Orosco, 719.47 Pain Joint Ankle & P.A. Foot Office Visit 03/27/2006 10:45a Main Office Valeria Singh 795.01 Pap Smear Atypical MD Squamous Cell Undetermined Sig (Asc-US) V72.31 Routine Super[employer] Examination V69.2 Sexual Behavior High Risk Office Visit 10/23/2005 2:30p Main Office gayla 462 Pharyngitis Acute Office Visit 03/13/2005 4:00p Main Office Braulio Abreu 595.0 Cystitis Acute Lorelei Urena Office Visit 11/27/2004 1:55p Main Office Braulio Abreu 789.05 Pain Abdominal Lorelei Urena Periumbilic 795.01 Pap Smear Atypical Squamous Cell Undetermined Sig (Asc-US) 078.10 Viral Warts Unspec Office Visit 09/19/2004 11:40a Main Office Shayan 795.01 Pap Smear Atypical Melany, N.P. Squamous Cell Undetermined Sig (Asc-US) Office Visit 08/28/2004 9:40a Main Office Shayan 616.0 Cervicitis & Melany, N.P. Endocervicitis 789.03 Pain Abdominal Right Lower Quadrant 616.10 Vaginitis & Vulvovaginitis Unspec Office Visit 06/20/2004 1:30p Main Office Nawaf Freitas, 074.3 Coxsackie Virus M.D. Hand Foot & Mouth Disease Office Visit 09/20/2003 4:20p Main Office Melany Downey, 626.4 Irregular N.P. Menstrual Cycle 789.03 Pain Abdominal Right Lower Quadrant Office Visit 09/07/2003 2:30p Main Office Houston Ziegler, 465.9 URI Upper M.D. Respiratory Infections Acute Unspec Sites 472.0 Rhinitis Chronic Office Visit 08/23/2003 9:00a Main Office Melany Downey, 626.4 Irregular N.P. Menstrual Cycle 616.0 Cervicitis & Endocervicitis 789.04 Pain Abdominal Left Lower Quadrant Office Visit 05/26/2003 3:20p Main Office Shayan 616.0 Cervicitis & Melany, N.P. Endocervicitis V25.41 Contraceptive Pill Surveillance V04.8 Need For Vaccination & Inoculation Other Viral Diseases Office Visit 01/21/2003 10:20a Main Office Shayan 616.0 Cervicitis & Melany, N.P. Endocervicitis Plan of Treatment Future Appointment(s):06/27/2018 9:45 am - Ahsan Murillo D.O. at Main [id number]/13/2018 - Ahsan Murillo D.O.E83.42 HypomagnesemiaFollow up:Cancel may aapt and follow up constipation in 1-2 months.F41.9 Anxiety disorder, [id number] Constipation, unspecified
[2018-05-23 09:52] VITALS: BP 109/58
--- NOTE | 2018-05-23 10:11 | UC ---
Abdominal Pain Female HPI - HPI Summary HPI Summary: Pt c/o of intermittent constipation and loose stools. Pt reports that she has had intermittent constipation, bloating and discomfort over last 2-3 months. - History of Current Complaint Chief Complaint: UCGI Stated Complaint: STOMACH PAINS, CONSTIPATION Time Seen by Provider: 05/23/18 09:49 Hx Obtained From: Patient Hx Last Menstrual Period: ~04/27/18 ?: No Onset/Duration: Gradual Onset, Lasting Weeks Timing: Constant Severity Initially: Mild Severity Currently: Mild Pain Intensity: 3 Location: Diffuse Radiates: No Character: Aching, Burning, Colicy, Cramping, Dull, Sharp Aggravating Factor(s): Food Alleviating Factor(s): Nothing Associated Signs and Symptoms: Positive: Constipation, Diarrhea - Risk Factors Ectopic Risk Factor: Maternal Age ^ 30 Ovarian Torsion Risk Factor: Reproductive Age Allergies/Adverse Reactions: Allergies Allergy/AdvReac Type Severity Reaction Status Date / Time Penicillins Allergy Unknown Verified 05/23/18 09:45 Reaction Details Home Medications: Home Medications Escitalopram (NF) [Lexapro 5 mg (NF)] 5 mg PO DAILY 05/23/18 [History Confirmed 05/23/18] Gabapentin CAP(*) [Neurontin 300 CAP(*)] 300 mg PO BEDTIME 05/23/18 [History Confirmed 05/23/18] L.acidoph,Paracasei, B.lactis [Probiotic] 1 each PO BID 05/23/18 [History Confirmed 05/23/18] Magnesium Oxide [Magnesium] 500 mg PO DAILY 05/23/18 [History Confirmed 05/23/18 ] Temazepam 7.5 mg Cap (Nf) [Temazepam] 7.5 mg PO BEDTIME 05/23/18 [History Confirmed 05/23/18] PMH/Surg Hx/FS Hx/Imm Hx Previously Healthy: Yes - Surgical History Surgical History: None Surgery Procedure, Year, and Place: none - Family History Known Family History: Positive: Cardiac Disease - Social History Occupation: Employed Full-time Lives: With Family Alcohol Use: None Substance Use Type: None Smoking Status (MU): Never Smoked Tobacco Have You Smoked in the Last Year: No Review of Systems All Other Systems Reviewed And Are Negative: Yes Constitutional: Positive: Negative Skin: Positive: Negative Eyes: Positive: Negative ENT: Positive: Negative Respiratory: Positive: Negative Cardiovascular: Positive: Negative Gastrointestinal: Positive: Abdominal Pain, Diarrhea, Other - constipation Genitourinary: Positive: Negative Motor: Positive: Negative Neurovascular: Positive: Negative Musculoskeletal: Positive: Negative Neurological: Positive: Negative Psychological: Positive: Negative Is Patient Immunocompromised?: No Physical Exam Triage Information Reviewed: Yes Appearance: Well-Appearing, Thin Vital Signs: Initial Vital Signs Temp 99 F 05/23/18 09:41 Pulse 72 05/23/18 09:41 Resp 16 05/23/18 09:41 BP 109/58 05/23/18 09:41 Pulse Ox 100 05/23/18 09:41 Vital Signs Reviewed: Yes Eye Exam: Normal ENT Exam: Normal Dental Exam: Normal Neck exam: Normal Respiratory Exam: Normal Cardiovascular Exam: Normal Abdominal Exam: Normal Abdomen Description: Positive: Other: - generalized discomfort Bowel Sounds: Positive: Present Musculoskeletal Exam: Normal Neurological Exam: Normal Psychological Exam: Normal Skin Exam: Normal Abd Pain Female Course/Dx - Course Course Of Treatment: Pt was given instructions about how to use stool softener and miralax to manage constipation. Pt was also instructed to f/u with GI provider. Pt verbalized understanding and agreed to plan of care. - Differential Dx/Diagnosis Differential Diagnosis: Constipation, Irritable Bowel Syndrome Provider Diagnoses: constipation. abdominal pain. IBS Discharge - Sign-Out/Discharge Documenting (check all that apply): Patient Departure All imaging exams completed and their final reports reviewed: No Studies - Discharge Plan Condition: Stable Disposition: HOME Patient Education Materials: Constipation (ED), Gas and Bloating (ED), Abdominal Pain (ED) Referrals: Megan Rojas MD [Medical Doctor] - As Soon As Possible Ahsan Murillo DO [Primary Care Provider] - - Billing Disposition and Condition Condition: STABLE Disposition: Home
== END 2018-05-23 10:18 | disposition home or self-care (01) ==
LOC: UCCORT 09:25
DX: K58.1 Irritable bowel syndrome with constipation (principal); Z88.0 Allergy status to penicillin
CPT/HCPCS: 99211; G0463

== ENCOUNTER 2018-06-22 18:27 | Emergency (ER) | payer BC ==
[2018-06-22 20:40] LABS: ABS Basophils 0 10^3/ul (0-0.2); ABS Eosinophils 0.1 10^3/ul (0-0.6); ABS Lymphocytes 3.3 10^3/ul (1.0-4.8); ABS Monocytes 0.4 10^3/ul (0-0.8); ABS Neutrophils 3.3 10^3/ul (1.5-7.7); ABS Nucleated RBC 0 10^3/ul; Hematocrit 43 % (35-47); Hemoglobin 14.4 g/dl (12.0-16.0); Lymphocyte % 46.2 %; Mean Corpuscular HGB Conc 34 g/dl (31-36); Mean Corpuscular Hemoglobin 31 pg (27-31); Mean Corpuscular Volume 92 fL (80-97); Mean Platelet Volume 7.7 fL (7.4-10.4); Nucleated Red Blood Cells % 0.1; Platelet Count 263 10^3/ul (150-450); Red Blood Count 4.66 10^6/ul (4.00-5.40); Red Cell Distribution Width 13 % (10.5-15); White Blood Count 7.1 10^3/ul (3.5-10.8)
[2018-06-22 20:57] LABS: EGFR Non-African American 66.5 (>60)
--- NOTE | 2018-06-22 21:31 | ED ---
Abdominal Pain/Female - HPI Summary HPI Summary: Patient is a 33 y/o F presenting to ED with complaints of left-sided abdominal pain, nausea, decreased appetite, constipation and acid reflux. She reports issues with abdominal pain, nausea, decreased appetite and acid reflux for the past two months constantly, Sx have been progressively worsened with a notable exacerbation today. Issues with constipation onset February. No PMHx of IBS, has her first professor of radiology appointment 07/13/18. Patient is on temazepam, escitalopram, gabapentin. PMHx of anxiety. On triage, pain is rated 6/10, nothing is noted to aggravate/alleviate Sx. Home medications and allergies are reviewed. - History of Current Complaint Chief Complaint: EDAbdPain Stated Complaint: ABD PAIN/NAUSEA Time Seen by Provider: 06/22/18 21:28 Hx Obtained From: Patient Hx Last Menstrual Period: ~04/27/18 Onset/Duration: Lasting Weeks - Sx onset two months ago. Issues with constipation onset February., Still Present, Worse Since - Sx progressively worsened with a notable exacerbation today Timing: Constant Severity Initially: Severe Severity Currently: Severe Pain Intensity: 7 Pain Scale Used: 0-10 Numeric - 7/10 Location: Other - left sided Radiates: No Aggravating Factor(s): Nothing Alleviating Factor(s): Nothing Associated Signs and Symptoms: Positive: Constipation, Decreased Appetite, Nausea, Other: - GERD Allergies/Adverse Reactions: Allergies Allergy/AdvReac Type Severity Reaction Status Date / Time Penicillins Allergy Unknown Verified 06/22/18 18:33 Reaction Details PMH/Surg Hx/FS Hx/Imm Hx Endocrine/Hematology History: Denies: Hx Diabetes, Hx Thyroid Disease Cardiovascular History: Denies: Hx Hypertension, Hx Pacemaker/ICD Respiratory History: Denies: Hx Asthma, Hx Chronic Obstructive Pulmonary Disease (COPD) GI History: Denies: Hx Ulcer History: Denies: Hx Dialysis, Hx Renal Disease Sensory History: Denies: Hx Hearing Aid Psychiatric History: Denies: Hx Panic Disorder - Surgical History Surgery Procedure, Year, and Place: none Infectious Disease History: No Infectious Disease History: Denies: Hx Hepatitis, Hx Human Immunodeficiency Virus (HIV), Traveled Outside the [place] in Last 30 Days - Family History Known Family History: Positive: Cardiac Disease - Social History Alcohol Use: None Substance Use Type: Reports: None Smoking Status (MU): Never Smoked Tobacco Have You Smoked in the Last Year: No Review of Systems Positive: Abdominal Pain, Nausea, Other - POSITIVE - GERD, DECREASED APPETITE Positive: other - POSITIVE - CONSTIPATION All Other Systems Reviewed And Are Negative: Yes Physical Exam - Summary Physical Exam Summary: VITAL SIGNS: Reviewed. GENERAL: Patient is a well-developed and nourished female who is lying comfortable in the stretcher. Patient is not in any acute respiratory distress. HEAD AND FACE: No signs of trauma. No ecchymosis, hematomas or skull depressions. No sinus tenderness. EYES: PERRLA, EOMI x 2, No injected conjunctiva, no nystagmus. EARS: Hearing grossly intact. Ear canals and tympanic membranes are within normal limits. MOUTH: Oropharynx within normal limits. NECK: Supple, trachea is midline, no adenopathy, no JVD, no carotid bruit, no c- spine tenderness, neck with full ROM. CHEST: Symmetric, no tenderness at palpation LUNGS: Clear to auscultation bilaterally. No wheezing or crackles. CVS: Regular rate and rhythm, S1 and S2 present, no murmurs or gallops appreciated. ABDOMEN: Soft, non-tender. No signs of distention. No rebound no guarding, and no masses palpated. Bowel sounds are hyperactive. EXTREMITIES: FROM in all major joints, no edema, no cyanosis or clubbing. NEURO: Alert and oriented x 3. No acute neurological deficits. Speech is normal and follows commands. SKIN: Dry and warm Triage Information Reviewed: Yes Vital Signs On Initial Exam: Initial Vitals Temp Pulse Resp BP Pulse Ox 98.3 F 86 18 137/75 100 06/22/18 18:31 06/22/18 18:31 06/22/18 18:31 06/22/18 18:31 06/22/18 18:31 Vital Signs Reviewed: Yes Diagnostics - Vital Signs Vital Signs Temp Pulse Resp BP Pulse Ox 06/22/18 20:39 98.4 F 71 18 124/95 100 06/22/18 18:31 98.3 F 86 18 137/75 100 - Laboratory Lab Results: Lab Results 06/22/18 06/22/18 Range/Units 20:24 20:24 WBC 7.1 (3.5-10.8) 10^3/ul RBC 4.66 (4.00-5.40) 10^6/ul Hgb 14.4 (12.0-16.0) g/dl Hct 43 (35-47) % MCV 92 (80-97) fL MCH 31 (27-31) pg MCHC 34 (31-36) g/dl RDW 13 (10.5-15) % Plt Count 263 (150-450) 10^3/ul MPV 7.7 (7.4-10.4) fL Neut % (Auto) 46.2 % Lymph % (Auto) 46.2 % [place] % (Auto) 6.1 % Eos % (Auto) 1.0 % Baso % (Auto) 0.5 % Absolute Neuts (auto) 3.3 (1.5-7.7) 10^3/ul Absolute Lymphs (auto) 3.3 (1.0-4.8) 10^3/ul Absolute Monos (auto) 0.4 (0-0.8) 10^3/ul Absolute Eos (auto) 0.1 (0-0.6) 10^3/ul Absolute Basos (auto) 0 (0-0.2) 10^3/ul Absolute Nucleated RBC 0 10^3/ul Nucleated RBC % 0.1 Sodium 138 (135-145) mmol/L Potassium 3.8 (3.5-5.0) mmol/L Chloride 104 (101-111) mmol/L Carbon Dioxide 25 (22-32) mmol/L Anion Gap 9 (2-11) mmol/L BUN 13 (6-24) mg/dL Creatinine 0.96 H (0.51-0.95) mg/dL Est GFR ( Amer) 80.5 (>60) Est GFR (Non-Af Amer) 66.5 (>60) BUN/Creatinine Ratio 13.5 (8-20) Glucose 90 (70-100) mg/dL Calcium 9.8 (8.6-10.3) mg/dL Total Bilirubin 1.10 H (0.2-1.0) mg/dL AST 14 (13-39) U/L ALT 9 (7-52) U/L Alkaline Phosphatase 43 (34-104) U/L C-Reactive Protein < 1.00 (<8.01) mg/L Total Protein 7.9 (6.4-8.9) g/dL Albumin 5.2 (3.2-5.2) g/dL Globulin 2.7 (2-4) g/dL Albumin/Globulin Ratio 1.9 (1-3) Lipase 25 (11.0-82.0) U/L Beta HCG, Quant < 0.60 mIU/mL Result Diagrams: 06/22/18 20:24 06/22/18 20:24 Lab Statement: Any lab studies that have been ordered have been reviewed, and results considered in the medical decision making process. - Radiology abodmen x-ray Radiology Interpretation Completed By: ED Physician Summary of Radiographic Findings: Abdomen x-ray showed increased stool, pending official report. Re-Evaluation - Re-Evaluation First Eval Re-Evaluation Time: 22:12 Comment: Results of labs and tests were discussed with patient, she will be discharged to home and follow up with PCP. Patient is advised to take metamucil , patient is agreeable with this plan. Abdominal Pain Fem Course/Dx - Course Course Of Treatment: Patient is a 33 y/o F presenting to ED with complaints of left-sided abdominal pain, nausea, decreased appetite, constipation and acid reflux. She reports issues with abdominal pain, nausea, decreased appetite and acid reflux for the past two months constantly, Sx have been progressively worsened with a notable exacerbation today. Issues with constipation onset February. No PMHx of IBS, has her first professor of radiology appointment 07/13/18. Patient is on temazepam, escitalopram, gabapentin. PMHx of anxiety. On physical exam, hyperactive bowel sounds. Abnormal labs include creatinine 0.96 , total bilirubin 1.1. Beta HCG < 0.6, lipase 25, CRP < 1, WBC 7.1. Abdomen x- ray showed increased stool. During ED course, patient was given citrate of magnesia 300 ml PO ED ONCE ONE, Dulcolax sup 10 mg [place] ED ONCE ONE. Results of labs and tests were discussed with patient, she will be discharged to home and follow up with PCP. Patient is advised to take metamucil, patient is agreeable with this plan. - Diagnoses Provider Diagnoses: Abdominal pain, Constipation Discharge - Sign-Out/Discharge Documenting (check all that apply): Patient Departure - DISCHARGE - Discharge Plan Condition: Stable Disposition: HOME Patient Education Materials: Constipation (ED), Abdominal Pain (ED) Referrals: Ahsan Murillo DO [Primary Care Provider] - 2 Days Additional Instructions: RETURN TO THE EMERGENCY DEPARTMENT FOR CHANGING OR WORSENING SYMPTOMS. FOLLOW UP WITH PRIMARY CARE PHYSICIAN IN 1-2 DAYS. TAKE METAMUCIL. - Attestation Statements Document Initiated by Ludyibjc: Yes Documenting Scribe: ROBERT BLISS Provider For Whom Key is Documenting (Include Credential): JAY SANFORD MD Scribe Attestation: IROBERT, scribed for JAY SANFORD MD on 06/22/18 at [id number]. Status of Scribe Document: Ready
[2018-06-22] MEDS ORDERED: Magnesium CITRATE* 300 ML BTL PO ONE (22:13)
[2018-06-22] MEDS ORDERED: Bisacodyl SUPP* 10 MG SUPP PR ONE (22:14)
[2018-06-22 22:39] VITALS: BP 119/75
== END 2018-06-22 22:38 | disposition home or self-care (01) ==
LOC: ED 18:27
DX: R10.32 Left lower quadrant pain (principal); K59.00 Constipation, unspecified; R11.0 Nausea; Z32.02 Encounter for pregnancy test, result negative; Z88.0 Allergy status to penicillin
CPT/HCPCS: 36415; 74019; 80053; 83690; 84702; 85025; 86140; 99283; A9270-GY

== ENCOUNTER 2019-09-24 14:58 | Emergency (ER) | payer BC ==
[2019-09-24 15:40] VITALS: BP 110/84
[2019-09-24] MEDS ORDERED: Ibuprofen TAB* 600 MG PO ONE (15:43)
[2019-09-24 15:59] LABS: Influenza B Molecular POSITIVE (Negative)
--- NOTE | 2019-09-24 16:04 | UC ---
FLU HPI - HPI Summary HPI Summary: 34-year-old female with flulike symptoms for approximately 4 days. - History of Current Complaint Chief Complaint: UCGeneralIllness Stated Complaint: FEVER, ST/COUGH, ACHY Time Seen by Provider: 09/24/19 15:44 Hx Obtained From: Patient Hx Last Menstrual Period: 09/24/19 ?: No Onset/Duration: Gradual Onset Severity Currently: Mild Severity Initially: Moderate Pain Intensity: 6 Associated Signs & Symptoms: Positive: Fever, Myalgia, Cough, Sore Throat, Nasal Congestion, Headache Related Hx: Possible Flu/Infectious Exposure - Allergy/Home Medications Allergies/Adverse Reactions: Allergies Allergy/AdvReac Type Severity Reaction Status Date / Time Penicillins Allergy Unknown Verified 09/24/19 15:40 Reaction Details Home Medications: Home Medications Gabapentin CAP(*) [Neurontin 300 CAP(*)] 300 mg PO BEDTIME 05/23/18 [History Confirmed 09/24/19] Magnesium Oxide [Magnesium] 500 mg PO DAILY 05/23/18 [History Confirmed 09/24/19 ] Temazepam 7.5 mg Cap (Nf) [Temazepam] 7.5 mg PO BEDTIME 05/23/18 [History Confirmed 09/24/19] PMH/Surg Hx/FS Hx/Imm Hx Previously Healthy: Yes - Surgical History Surgical History: None Surgery Procedure, Year, and Place: none - Family History Known Family History: Positive: Cardiac Disease - Social History Lives: With Family Alcohol Use: None Substance Use Type: None Smoking Status (MU): Never Smoked Tobacco Have You Smoked in the Last Year: No Review of Systems All Other Systems Reviewed And Are Negative: Yes Constitutional: Positive: Fever, Chills ENT: Positive: Sore Throat, Nasal Discharge Respiratory: Positive: Cough Musculoskeletal: Positive: Myalgia Neurological/Mental Status: Positive: Headache Is Patient Immunocompromised?: No Physical Exam Triage Information Reviewed: Yes Appearance: Well-Appearing, No Pain Distress, Well-Nourished Vital Signs: Initial Vital Signs Temp 101.5 F 09/24/19 15:36 Pulse 100 09/24/19 15:36 Resp 16 09/24/19 15:36 BP 110/84 09/24/19 15:36 Pulse Ox 100 09/24/19 15:36 Vital Signs Reviewed: Yes Eyes: Positive: Conjunctiva Clear ENT: Positive: Hearing grossly normal, Pharynx normal, TMs normal, Uvula midline Neck: Positive: Supple, Nontender, No Lymphadenopathy Respiratory: Positive: Lungs clear, Normal breath sounds, No respiratory distress, No accessory muscle use Cardiovascular: Positive: RRR, No Murmur, Pulses Normal, Brisk Capillary Refill Abdomen Description: Positive: Nontender, No Organomegaly. Negative: CVA Tenderness (R), CVA Tenderness (L), Distended, Guarding, Hepatomegaly, Splenomegaly Bowel Sounds: Positive: Present Musculoskeletal Exam: Normal Neurological Exam: Normal Psychological Exam: Normal Skin Exam: Normal Flu Course/Dx - Course Course Of Treatment: Rapid strep test: Negative Rapid flu test: Positive for type B Pt Is comfortable here and nontoxic. - Differential Dx/Diagnosis Provider Diagnosis: Influenza B Discharge ED - Sign-Out/Discharge Documenting (check all that apply): Patient Departure All imaging exams completed and their final reports reviewed: No Studies - Discharge Plan Condition: Fair Disposition: HOME Patient Education Materials: Influenza (DC) Forms: *Work Release Referrals: Ahsan Murillo DO [Primary Care Provider] - Additional Instructions: Increase fluids, rest, may take Tylenol every 4 hours and alternate with Motrin every 8 hours. Follow-up with your primary care provider in 3 or 4 days if no improvement. - Billing Disposition and Condition Condition: FAIR Disposition: Home - Attestation Statements Provider Attestation: Chart has been reviewed. I did not see the patient but was available for consult. EK.
== END 2019-09-24 16:14 | disposition home or self-care (01) ==
LOC: UCCORT 14:58
DX: J10.1 Influenza due to other identified influenza virus with other respiratory manifestations (principal); Z88.0 Allergy status to penicillin
CPT/HCPCS: 87651; 99212; A9270-GY; G0463